=== PATIENT | male | born 1990 | race Caucasian/White ===

== ENCOUNTER 2020-08-04 16:42 | Emergency (ER) | payer BC, OTHER ==
[2020-08-04] MEDS ORDERED: Lidocaine 1% (PF) 30 ML VIAL ONE (18:11)
[2020-08-04] MEDS ORDERED: Bupivacaine 0.5% 10 ML VIAL ONE (18:12)
--- NOTE | 2020-08-04 18:54 | RAD ---
Exam: XR Finger(s) Lt Min 2 View HISTORY: Laceration to left fourth finger. COMPARISON: None FINDINGS: There is a soft tissue defect related to laceration involving the lateral aspect of the distal left r ing finger at the level of the distal interphalangeal joint. There is suggestion of an avulsion injury involving the lateral aspect of the base of the distal phalanx left ring finger. No additional fracture is seen, and there is no dislocation. IMPRESSION: Soft tissue defect/laceration involving the distal aspect of the left ring finger with tiny avulsion injury involving the lateral aspect base of the distal phalanx left ring finger.
== END 2020-08-04 19:28 | disposition home or self-care (01) ==
LOC: ERS 16:42
DX: S61.215A Laceration without foreign body of left ring finger without damage to nail, initial encounter (principal); S64.495A Injury of digital nerve of left ring finger, initial encounter; B20 Human immunodeficiency virus [HIV] disease; Z79.899 Other long term (current) drug therapy; W45.8XXA Other foreign body or object entering through skin, initial encounter
CPT/HCPCS: 96372; J2001; J3490